=== PATIENT | male | born 1940 | race Caucasian/White ===

== ENCOUNTER → 2016-09-21 | Outpatient (CLI) | payer OTHER | LOC: FIMAGING 14:43 | PROVIDERS: ATTEND Physician Assistant | DX: Z98.1 Arthrodesis status (principal); M25.559 Pain in unspecified hip ==

== ENCOUNTER → 2016-10-19 | Outpatient (CLI) | payer OTHER ==
[~2016-10-19] MED LIST: IOPAMIDOL (ISOVUE-M 200) 20 ML VIAL ONE; LIDOCAINE 1% 300 MG/30 ML SDV ONE
== END ==
LOC: FIMAGING 08:27
PROVIDERS: ATTEND Neurological Surgery
PROC: 3E0R3KZ Introduction of Other Diagnostic Substance into Spinal Canal, Percutaneous Approach (ICD-10-PCS; principal; 2016-10-19)
DX: M48.06 Spinal stenosis, lumbar region (principal); M99.73 Connective tissue and disc stenosis of intervertebral foramina of lumbar region; M51.16 Intervertebral disc disorders with radiculopathy, lumbar region; M89.38 Hypertrophy of bone, other site; Z98.1 Arthrodesis status
CPT/HCPCS: 62284; 72132; 72265; Q9966

== ENCOUNTER → 2016-10-31 | Outpatient (CLI) | payer OTHER | LOC: BHLMT 10:00 | PROVIDERS: ATTEND Internal Medicine Cardiovascular Disease | DX: I48.0 Paroxysmal atrial fibrillation (principal); I25.10 Atherosclerotic heart disease of native coronary artery without angina pectoris; I73.9 Peripheral vascular disease, unspecified; I49.5 Sick sinus syndrome; Z95.0 Presence of cardiac pacemaker; Z95.5 Presence of coronary angioplasty implant and graft | CPT/HCPCS: 93005-PO ==

== ENCOUNTER 2016-12-13 06:08 | Inpatient (IN) | payer OTHER ==
[~2016-12-13 06:08] MED LIST changes: -IOPAMIDOL (ISOVUE-M 200) 20 ML VIAL ONE; -LIDOCAINE 1% 300 MG/30 ML SDV ONE; +ceFAZolin 2 GM/DEXTROSE 100 ML IV ONE; +morphINE SR 15 MG TAB PO ONE
[2016-12-13] MEDS ORDERED: NITROGLYCERIN 0.4 MG BTL SL PRN (06:11)
[2016-12-13] MEDS ORDERED: Adalimumab [Humira Pen] 40 MG SQ SCH (06:15)
[2016-12-13] MEDS ORDERED: THROMBIN (BOVINE) 5,000 UNIT VIAL TP ONE (06:16)
[2016-12-13] MEDS ORDERED: BUPIVACAINE/EPI 0.25% 30 ML SDV ONE ×2 (06:17→08:26)
[2016-12-13] MEDS ORDERED: BACITRACIN 50,000 UNITS/10 ML SYR IRR ONE (06:17)
[2016-12-13] MEDS ORDERED: LIDOCAINE 1% 2 ML INJ ID PRN (06:19)
[2016-12-13] MEDS ORDERED: LR 1,000 ML IV ONE (06:19)
[2016-12-13] MEDS ORDERED: LIDOCAINE 1% 2 ML INJ ONE (06:24)
--- NOTE | 2016-12-13 06:42 | PDHPUP ---
History & Physical Update H&P update statement: This history and physical update is based on an assessment of the patient which was completed after admission or registration (within 24 hours), but prior to the surgery/procedure. H&P update: H&P reviewed & patient examined, no change in patient's condition since H&P completed
--- NOTE | 2016-12-13 06:44 | PDGENHP ---
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 He was doing well post op and nearly pain free for months until approximately one month ago when he began to experience painful symptoms. He describes his symptoms as bilateral hip pain and pain in his right SI region. He has bilateral hamstring pain at times with numbness on top of his left foot. Following his surgery in April, Sammy had a tough time after leaving the hospital and his had a very hard time taking care of him and they wished to go to rehab when they at first did not want this option. We discussed that once they leave the hospital this is very difficult to get covered and so they had their son stay with them for a couple of days, made some med changes, and now he is doing much better. He is taking medications for his RA including Methotrexate and Tylenol Arthritis. Sammy presents today with his for a pre op appointment. He is scheduled for a L3-4 TLIF L3-L5 fusion with Dr Miranda on 12/13/16 at [facility]. He has obtained cardiac clearance from Dr Snowden and will be arranging to get off of his coumadin and start lovenox with his PCP Dr Angel. 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 ALLERGIES [ 1 ] Date Added: 09/29/2016 10:41:01 PM Allergy: NO KNOWN ALLERGIES VITALS [ 1 ] Date: 11/22/2016 9:04:32 AM Height : 67.00 inch. 170.18 cm Weight : 200.00 lbs. 90.72 kg B M I: 31.32 Temperature : 97.60 F. 36.44 C Blood Pressure : 80 / 47 Pulse: 62 beats/minute PE Neurological Orientation Oriented to: Person Place Situation Time Lower Extremity Iliosoas (L1-4) Bilaterally 5/5 Gluteus beatrice (L5-S1) Bilaterally 5/5 Quadriceps (L2-4) Bilaterally 5/5 Hamstrings (L4-5, S1) Bilaterally 5/5 Peronel (L4-5, S1) Bilaterally 5/5 Tibialis anterior (L4-5, S1) Bilaterally 5/5 Gasterocnemius-soleus (L5,S1-2) Bilaterally 5/5 Toes-extensors (L4-5,S1) Bilaterally 5/5 Toes-flexors (L5-S1-2) Bilaterally 5/5 Extensor Hallucis Longus Bilaterally 5/5 Gait Assissted Cane Respiratory Normal work of breathing ADDITIONAL ENCOUNTER INFORMATION This visit was face to face and 15-24 min long and over 50% of the time was spent on counseling and coordination of care. I agree with current diagnostics and treatment plan ADDED BY Ruben Moran ON 11/24/2016 9:57:51 AM CPT/ICD 53202 - OFFICE OUTPATIENT VISIT 15 MINUTES [Qty] = 1 Click here for External Information related to this code Click here for Additional Information related to this code M48.06-Spinal stenosis, lumbar region Click here for External Information related to this code Click here for Additional Information related to this code M51.36-Other intervertebral disc degeneration, lumbar region Click here for External Information related to this code Click here for Additional Information related to this code M54.16-Radiculopathy, lumbar region Click here for External Information related to this code Click here for Additional Information related to this code M54.5-Low back pain Click here for External Information related to this code Click here for Additional Information related to this code Z98.1-Arthrodesis status ASMT/PLAN/REFERRALS Sammy is status post L4-[address] Miranda on 05/09/16. He was doing well and pain free until 3 months ago. He has bilateral hip pain as well as pain in his bilateral hamstrings at time. He has numbness on top of his right foot that started shortly after his surgery. CT myleogram performed on October 19, 2016 at [facility] demonstrates severe spinal stenosis at L3-4 secondary to moderate disk bulge and moderate ligamentum flavm hypertrophy. He also has a mild disk bulge at L2-3 but it is likely that the ASD at L3-4 is the cause of his pain. He has tried PT which was not beneficial and does not wish to pursue any further conservative therapies due to the severity of his pain and severity of the stenosis. He presents today for a pre-op appointment. He is scheduled for a L3-4 TLIF with fusion L3-[address] Miranda on 12/14/16. He has cardiac clearance from Dr Snowden and will stop his Coumadin and bridge with Lovenox with his PCP Dr [place] recommendations. Patient and his have concerns about being discharged home too soon following surgery, we will ensure case management is consulted for possible rehab stay. Risks, benefits and all questions answered. History Information - Allergies/Home Medication List Allergies/Adverse Reactions: tamsulosin HCl [From Flomax] Allergy (Verified 10/17/16 08:52) SEVERE HEADACHE Home Medications: Cinacalcet HCl [Sensipar (*)] 30 mg PO DAILY 02/15/16 [Last Taken 02/15/16] Ezetimibe [Zetia 10 MG (*)] 10 mg PO DAILY 02/15/16 [Last Taken 02/14/16] Metoprolol Tartrate [Lopressor 50 mg (*)] 50 mg PO DAILY 02/15/16 [Last Taken ] Nitroglycerin [Nitrostat 0.4 mg (*)] 0.4 mg SL Q5M PRN 02/15/16 [Last Taken Unknown] Omeprazole [Prilosec 20 mg] 20 mg PO DAILY 02/15/16 [Last Taken 02/15/16] Saxagliptin HCl [ONGLYZA] 2.5 mg PO DAILY 02/15/16 [Last Taken 02/14/16] Acetaminophen [Tylenol ES 500 mg (*)] 500 mg PO DAILY 11/22/16 [Last Taken Unknown] Adalimumab [Humira] 40 mg SQ Q14D 11/22/16 [Last Taken Unknown] Alfuzosin HCl [Alfuzosin HCl ER] 10 mg PO HS 11/22/16 [Last Taken Unknown] Aspirin [Aspirin 325 mg (*)] 325 mg PO DAILY 11/22/16 [Last Taken Unknown] Herbals/Supplements -Info Only 1 ea PO DAILY 11/22/16 [Last Taken Unknown] Methotrexate Sodium [Rheumatrex] 10 mg PO MIRAMONTES 11/22/16 [Last Taken Unknown] Multivitamins [Multivitamin (*)] 1 each PO DAILY 11/22/16 [Last Taken Unknown] [place]-3 Fatty Acids [Fish Oil 1000 mg (*)] 3,000 mg PO DAILY 11/22/16 [Last Taken Unknown] Warfarin Sodium [Coumadin 2.5MG (*)] 2.5 mg PO TUTHSA 11/22/16 [Last Taken Unknown] Warfarin Sodium [Coumadin 5MG (*)] 5 mg PO SUMOWEFR 11/22/16 [Last Taken Unknown ] Prednisone 11/28/16 [Last Taken Unknown] oxyCODONE IR 11/28/16 [Last Taken Unknown] I have personally reviewed and updated: family history, medical history, social history, surgical history - Social History Smoking Status: Former smoker
[2016-12-13] MEDS ORDERED: ceFAZolin 2 GM/DEXTROSE 100 ML IV ONE (07:00)
[2016-12-13] MEDS ORDERED: CEFAZOLIN 2 GM/DEXTROSE/100 ML BAG IV ONE (07:02)
--- NOTE | 2016-12-13 07:19 | PDANEPAE ---
ANE History of Present Illness Patient presents for TLIF ANE Past Medical History - Cardiovascular History Hx Hypertension: Yes Hx Arrhythmias: Yes Hx Chest Pain: No Hx Coronary Artery / Peripheral Vascular Disease: Yes Hx CHF / Valvular Disease: No Hx Palpitations: No Cardiovascular History Comment: [place] 1989. Sick sinus- pacer replaced in Jan 2016.Feels well. - Pulmonary History Hx COPD: No Hx Asthma/Reactive Airway Disease: No Hx Recent Upper Respiratory Infection: No Hx Oxygen in Use at Home: No Hx Sleep Apnea: No Sleep Apnea Screening Result - Last Documented: Positive Pulmonary History Comment: denies SOB w/daily activities - Neurologic History Hx Cerebrovascular Accident: No Hx Seizures: No Hx Dementia: No - Endocrine History Hx Diabetes: No Endocrine History Comment: Rx Onglyza - pre diabetic. Sensipar for Hyperparathyroidism. - Renal History Hx Renal Disorders: Yes Renal History Comment: on Uroxatral to help empty bladder. BPH? - Liver History Hx Hepatic Disorders: No - Neurological & Psychiatric Hx Hx Neurological and Psychiatric Disorders: Yes Neurological / Psychiatric History Comment: back pain x 2 mos. pain radiates down R leg to foot. N/T. - Cancer History Hx Cancer: No - Congenital Disorder History Hx Congenital Disorders: No - GI History Hx Gastrointestinal Disorders: Yes Gastrointestinal History Comment: GERD-on Rx. - Other Health History Other Health History: blood clot several years ago-calf area of legs x2- on Coumadin. bruises easily. RA -Humira Q 2 weeks-well controlled.Hx of gout. - Chronic Pain History Chronic Pain: Yes (back pain) - Surgical History Prior Surgeries: L4/5 laminectomy -12, cyst excision R arm 5-16. 5 STENTS PLACED : 1999 - DR. BANUELOS FROM [facility] ANE Review of Systems - Exercise capacity METS (RN): 3 METS - Pacemaker Pacemaker Type: Permanent Pacer/Defib Pacemaker Manager Of Finance: Medtronic Pacemaker Model: ADSR01; ADAPTIVE SR PACEMAKER Pacemaker Set Rate: 60 Date Pacemaker Last Checked: 10/2011 NEXT APPT 05/06/12 ANE Patient History - Allergies Allergies/Adverse Reactions: tamsulosin HCl [From Flomax] Allergy (Verified 10/17/16 08:52) SEVERE HEADACHE - Home Medications Home medications: home medication list seen and reviewed Home Medications: Cinacalcet HCl [Sensipar (*)] 30 mg PO DAILY 02/15/16 [Last Taken 12/13/16 05:30 ] Ezetimibe [Zetia 10 MG (*)] 10 mg PO DAILY 02/15/16 [Last Taken 12/13/16 05:30] Metoprolol Tartrate [Lopressor 50 mg (*)] 50 mg PO DAILY 02/15/16 [Last Taken 05:30] Nitroglycerin [Nitrostat 0.4 mg (*)] 0.4 mg SL Q5M PRN 02/15/16 [Last Taken Unknown] Omeprazole [Prilosec 20 mg] 20 mg PO DAILY 02/15/16 [Last Taken 12/12/16] Saxagliptin HCl [ONGLYZA] 2.5 mg PO DAILY 02/15/16 [Last Taken 12/12/16 07:30] Acetaminophen [Tylenol ES 500 mg (*)] 500 mg PO DAILY 11/22/16 [Last Taken 12/12 21:00] Adalimumab [Humira] 40 mg SQ Q14D 11/22/16 [Last Taken Unknown] Alfuzosin HCl [Alfuzosin HCl ER] 10 mg PO HS 11/22/16 [Last Taken 12/12/16 21:30 ] Aspirin [Aspirin 325 mg (*)] 325 mg PO DAILY 11/22/16 [Last Taken 12/06/16] Herbals/Supplements -Info Only 1 ea PO DAILY 11/22/16 [Last Taken 12/06/16] Methotrexate Sodium [Rheumatrex] 10 mg PO MIRAMONTES 11/22/16 [Last Taken 12/10/16] Multivitamins [Multivitamin (*)] 1 each PO DAILY 11/22/16 [Last Taken 12/06/16] [place]-3 Fatty Acids [Fish Oil 1000 mg (*)] 3,000 mg PO DAILY 11/22/16 [Last Taken 11/22/16] Warfarin Sodium [Coumadin 2.5MG (*)] 2.5 mg PO TUTHSA 11/22/16 [Last Taken 12/06] Warfarin Sodium [Coumadin 5MG (*)] 5 mg PO SUMOWEFR 11/22/16 [Last Taken ] Prednisone 11/28/16 [Last Taken 11/15/16] oxyCODONE IR 11/28/16 [Last Taken 12/12/16 08:00 1/2 tab] - NPO status NPO Status: no food or drink >8 hours NPO Since - Liquids (Date): 12/12/16 NPO Since - Liquids (Time): 22:00 NPO Since - Solids (Date): 12/12/16 NPO Since - Solids (Time): 18:00 - Anes Hx Anes Hx: no prior problems - Smoking Hx Smoking Status: Former smoker - Family Anes Hx Family Hx Anesthesia Complications: N/A ANE Labs/Vital Signs - Vital Signs Blood Pressure: 149/87 Heart Rate: 84 Respiratory Rate: 20 O2 Sat (%): 97 Height: 170.18 cm Weight: 90.718 kg ANE Physical Exam - Airway Neck exam: FROM Mallampati Score: Class 2 Mouth exam: normal dental/mouth exam - Pulmonary Pulmonary: no respiratory distress - Cardiovascular Cardiovascular: regular rate and rhythym - ASA Status ASA Status: III ANE Anesthesia Plan Anesthesia Plan: general endotracheal anesthesia Lines/Monitors: arterial line (rba discussed)
[2016-12-13] MEDS ORDERED: PROPOFOL/EMULSION 500 MG/50 ML BOTTLE IV ONE ×2 (07:22→09:50)
[2016-12-13] MEDS ORDERED: fentaNYL 100 MCG/2 ML INJ ONE (07:22)
[2016-12-13] MEDS ORDERED: REMIFENTANIL HCL 1 MG VIAL ONE ×3 (07:22)
[2016-12-13] MEDS ORDERED: DEXAMETHASONE 4 MG/ML VIAL ONE (07:23)
[2016-12-13] MEDS ORDERED: ONDANSETRON 4 MG/2 ML VIAL ONE (07:23)
[2016-12-13] MEDS ORDERED: ROCURONIUM 50 MG/5 ML VIAL ONE (07:23)
[2016-12-13] MEDS ORDERED: LIDOCAINE 2% 5 ML SDV ONE (07:23)
[2016-12-13] MEDS ORDERED: PROPOFOL 200 MG/20 ML VIAL ONE (07:23)
[2016-12-13] MEDS ORDERED: PHENYLEPHRINE HCL 100 MCG/ML SYR ONE (07:50)
[2016-12-13] MEDS ORDERED: epHEDrine SULFATE 10 MG/ML SYR ONE (07:53)
[2016-12-13] MEDS ORDERED: PHENYLEPHRINE 10 MG/ML SDV ONE (08:52)
[2016-12-13] MEDS ORDERED: SAXAGLIPTIN HCL 2.5 MG PO SCH (09:00)
[2016-12-13] MEDS ORDERED: NON-FORMULARY NEW DRUG (Omeprazole [Prilosec 20 Mg] 20 MG) PO SCH (09:00)
[2016-12-13] MEDS ORDERED: ACETAMINOPHEN 500 MG TAB PO SCH (09:00)
[2016-12-13] MEDS ORDERED: HYDROmorphONE/DILAUDID 2 MG/ML INJ ONE (10:17)
[2016-12-13] MEDS ORDERED: SUGAMMADEX SODIUM 200 MG/2 ML VIAL IVP ONE (10:19)
[2016-12-13] MEDS ORDERED: NALOXONE HCL 0.4 MG/ML INJ IVP PRN ×2 (11:17→12:30)
[2016-12-13] MEDS ORDERED: HYDROmorphONE/DILAUDID 1 MG/ML SYR IVP PRN ×2 (11:17→12:58)
[2016-12-13] MEDS ORDERED: fentaNYL 100 MCG/2 ML INJ IVP PRN (11:17)
[2016-12-13] MEDS ORDERED: ONDANSETRON 4 MG/2 ML VIAL IVP PRN ×2 (11:17→12:30)
[2016-12-13] MEDS ORDERED: LR 500 ML IV PRN (11:17)
[2016-12-13] MEDS ORDERED: ceFAZolin 1 GM VIAL ONE (11:21)
--- NOTE | 2016-12-13 12:29 | SOAPPROG ---
SOAP Progress Note Assessment/Plan: Post Op Visit: S: Awake and alert. NAD. Pt with expected lower back pain O: AFVSS/PERRLA/EOMI no droop CN 2-12 grossly intact +lt touch 5/5 BUE/BLE = CDI ROBINA in place A/P: 76 yo male that is s/p removal of hardware L4/5 with new TLIF at L3/4 and PSF L3-L5 -orders in place -call with any questions or concerns -pt seen by Dr Miranda -spoke with Doug Pozo from for consult regarding medical management -H/P on chart 12/13/16 12:26 Objective: Vital Signs Temp Pulse Resp BP Pulse Ox 36.3 C 84 13 147/82 H 100 12/13/16 12:13 12/13/16 07:19 12/13/16 12:11 12/13/16 12:11 12/13/16 12:11 ICD10 Worksheet Patient Problems: Problems Problem Status Onset Lumbar canal stenosis Acute Lumbar degenerative disc disease Acute Lumbar disc herniation with radiculopathy Acute Lumbar pars defect Acute
[2016-12-13] MEDS ORDERED: diphenhydrAMINE 25 MG CAP PO PRN (12:30)
[2016-12-13] MEDS ORDERED: MAGNESIUM HYDROXIDE 30 ML UDCUP PO PRN (12:30)
[2016-12-13] MEDS ORDERED: LACTULOSE 20 GM/30 ML UDCUP PO PRN (12:30)
[2016-12-13] MEDS ORDERED: ONDANSETRON DISINTEGRATING 4 MG TAB PO PRN (12:30)
[2016-12-13] MEDS ORDERED: METHOCARBAMOL 750 MG TAB PO PRN (12:30)
[2016-12-13] MEDS ORDERED: HYDROmorphONE/DILAUDID 6 MG/30 ML PCA IV PRN (12:30)
[2016-12-13] MEDS ORDERED: BISACODYL 10 MG SUPP PR PRN (12:30)
[2016-12-13] MEDS ORDERED: POLYETHYLENE GLYCOL 3350 17 GM PKT PO PRN (12:30)
[2016-12-13] MEDS ORDERED: ACETAMINOPHEN 325 MG TAB PO PRN (12:43)
--- NOTE | 2016-12-13 12:47 | POSTANESTH ---
Post Anesthetic Evaluation Cardiovascular Status: Normal, Stable Respiratory Status: Normal, Stable Level of Consciousness/Mental Status: Can Participate in Eval Pain Control: Adequate, Prn Tx Ordered Nausea/Vomiting Control: Adequate, Prn Tx Ordered Complications Possibly Related to Anesthesia: None Noted
[2016-12-13] MEDS: Saxagliptin Hcl [Onglyza] 2.5 MG PO SCH (13:44)
[2016-12-13] MEDS: PANTOPRAZOLE SODIUM 40 MG TAB PO SCH (13:44)
[2016-12-13] MEDS: METOPROLOL TARTRATE 50 MG TAB PO SCH (13:44)
[2016-12-13] MEDS: EZETIMIBE 10 MG TAB PO SCH (14:19)
[2016-12-13] MEDS: CINACALCET HCL 30 MG TAB PO SCH (14:19)
[2016-12-13] MEDS ORDERED: D50W 25 GM/50 ML SYR IVP PRN (15:10)
[2016-12-13 16:15] LABS: ANION GAP 9 mEq/L (8-16); CALCIUM 8.9 mg/dL (8.5-10.4); CARBON DIOXIDE 23 mEq/l (22-31); CHLORIDE 109 mEq/L (97-110); CREATININE 1.3 mg/dL (0.7-1.3); GLOMERULAR FILTRATION RATE 54; GLUCOSE 129 mg/dL (70-100); POTASSIUM 5.5 mEq/L (3.5-5.2); SODIUM 141 mEq/L (134-144)
[2016-12-13] MEDS: oxyCODONE IR 5 MG TAB PO PRN (17:38)
[2016-12-13] MEDS: INSULIN LISPRO 100 UNIT/ML SC SCH (17:42)
[2016-12-13] MEDS ORDERED: predniSONE 5 MG TAB PO PRN (18:11)
[2016-12-13] MEDS ORDERED: HYDROCORTISONE 100 MG/2 ML VIAL IVP ONE (18:13)
[2016-12-13] MEDS: NS 1,000 ML IV SCH ×2 (19:17→19:35)
[2016-12-13] MEDS: Alfuzosin Hcl [Alfuzosin Hcl Er] 10 MG PO SCH (19:28)
[2016-12-13] MEDS: ceFAZolin 2 GM/DEXTROSE 100 ML IV SCH (19:35)
[2016-12-13] MEDS: FAMOTIDINE 20 MG TAB PO SCH (19:36)
[2016-12-13] MEDS: SENNOSIDES/DOCUSATE SODIUM TAB PO SCH (19:36)
[2016-12-13] MEDS ORDERED: morphINE SR 15 MG TAB PO SCH (21:00)
[2016-12-13] MEDS ORDERED: NON-FORMULARY NEW DRUG (Alfuzosin Hcl [Alfuzosin Hcl Er] 10 MG) PO SCH (21:00)
--- NOTE | 2016-12-13 22:58 | GOP ---
[f rep st] OPERATIVE REPORT DATE OF OPERATION: 12/13/2016 SURGEON: Laura Miranda MD NEUROSURGEON: Laura Miranda MD VENDING MACHINE ATTENDANT: Lee Carrasco PA-C PREOPERATIVE DIAGNOSIS: Adjacent segment disease, severe stenosis, bilaterally L3-4; bilateral lumb osacral radiculopathy; prior lumbar fusion at L4-5. POSTOPERATIVE DIAGNOSIS: Adjacent segment disease, severe stenosis, bilaterally L3-4; bilateral lum bosacral radiculopathy; prior lumbar fusion at L4-5. PROCEDURE PERFORMED: Removal of posterior nonsegmental hardware across a single interspace at L4-5, posterior, lateral, and intervertebral arthrodesis at L3-4 with bilateral decompressions and an int erbody device was placed there (22405, 12061), posterior segmental instrumentation L3, L4, L5 (49982 ), same incision bone graft harvest, microscope, stereotaxy. FINDINGS: ESTIMATED BLOOD LOSS: 150 cc. INDICATIONS: The patient is an elderly gentleman, who had a successful lumbar fusion at L4-5 back i april, who began to develop severe bilateral radiating leg pain and repeat CT myelogram of the lumbar spine demonstrated terrible stenosis above the prior fusion at L3-4. I suggested adjacent se gment instrumentation and explained to him and his that he may require additional segments of s urgery at some point in the future. I did not recommend laminectomy alone above my prior fusion. T here did not appear to be any problem with the prior fusion. It is unclear whether or not he had so lid intervertebral bone growth, however, there was, particularly on the left-hand side, solid bridgi ng bone posterolaterally. The risk of screw and hardware malposition, malfunction, nerve injury, sp inal fluid leak, and continued symptoms was discussed. He accepted those risks and he wanted to pro ceed. DESCRIPTION OF PROCEDURE: The patient was taken to the operating room, placed in supine position. General anesthesia was begun. He was flipped prone onto the Pradip table. Care was taken to pad a ll points of contact. His back was sterilely prepped and draped in the usual fashion. A localizing x-ray was taken. Midline incision was made. The prior incision was opened. We had a total incisi on length of about 8 cm. The subcutaneous tissue was dissected using a plasma blade down through th e fascia, and a subperiosteal dissection was made down the L2 lamina. The L3 lamina was completely exposed. The L4-5 posterolateral hardware was exposed. The rostral L4 lamina was exposed. We removed the prior hardware. It was Medtronic Solera. There was no defect in the hardware. The screws were all well seated within bone. There was no loosening of the hardware. Posterolaterally, we identified large solid posterolateral bone mass at L4-5, and we deemed this fused. There was no motion between L4 and L5. The Exec reference frame was placed. We placed pedicle screws bilate rally at L3, L4, and L5. We used a 5.5 mm system. We then took a 70 mm Solera michael, placed it down over the tulips, distracted significantly at L3-4, and transitionally tightened at L3. Later in the case, we would collapse L3 down on our lordotic device to increase the lordosis. We dissected all the soft tissue off the L3-4 lamina, harvested the inferior L3 spinous process, all of the L4 spinou s process. We then drilled bilateral laminectomy and bilateral decompressions at L3-4 and harvested this for au tologous grafting purposes. Under the scope, we decompressed the thecal sac bilaterally. We perfor med a complete left L3-4 facetectomy and a partial right L3-4 facetectomy, and decompress both sides of the spinal canal. We then opened the neural foramen on the left-hand side to access the interve rtebral space. We swept the thecal sac medially, incised the L3-4 disk, and removed the disk comple tely and its cartilaginous endplates. We roughened the subchondral bone to create arthrodesis and s ized for an 8 x 28 mm device. We placed bone autograft into the interspace and BMP, elevated the derrick ne intervertebral device, decorticated all the posterior lateral bone, checked fluoroscopic images t hat all the devices were in excellent position. We compressed at L3-4, final tightened the cap scre ws according to company specification. Placed a subfascial drain, and closed the incision in multip le layers using Vicryl sutures. A running PDS was placed in the skin itself. COMPLICATIONS: None. /[id number]/MODL
--- NOTE | 2016-12-13 23:08 | GCON ---
[f rep st] CONSULTATION DATE OF CONSULTATION: 12/13/2016 REFERRING PHYSICIAN: Dr. Miranda REASON FOR CONSULTATION: Medical management. HISTORY OF PRESENT ILLNESS: The patient is a 76-year-old male with history of RA, CAD with stents, pacemaker, lower extremity DVTs, who underwent elective L3-4 TLIF, L3-5 fusion today. The patient u nderwent prior L4-L5 fusion in April 2016 with good recovery; however, he has had progressive geovany ateral hip and right SI region pain for the past month. He denies chest pain, shortness of breath. No fevers or chills. No nausea, vomiting, or diarrhea. He is comfortable after surgery today. He has been off his Coumadin and taking Lovenox at home chaya or to the surgery. REVIEW OF SYSTEMS: I completed a 10-point review of systems, negative except as noted in HPI. PAST MEDICAL HISTORY: 1. RA pacemaker in 1990, replaced last year. 2. Coronary artery disease, status post 5 stents. 3. Bilateral lower extremity DVTs. 4. Hyperlipidemia. 5. Hypertension. 6. SC in 1989. 7. Peripheral vascular disease. 8. Sick sinus syndrome. 9. Diabetes, controlled on orals. PAST SURGICAL HISTORY: 1. Prior laminectomy. 2. Right elbow. SOCIAL HISTORY: Lives with his in [place]. No tobacco, alcohol, or illicits. ALLERGIES: Flomax. FAMILY HISTORY: Noncontributory. HOME MEDICATIONS: Oxycodone 2.5 mg twice daily, Humira 40 mg subcu q.2 weeks, prednisone 5 mg p.r.n ., Coumadin 5 mg Ipyjed-Lqsrvc-Ddqielolc-Sunday, 2.5 mg every other day, metoprolol 50 mg daily, Thor lyza 2.5 mg daily, omeprazole 20 mg daily, Zetia 10 mg daily, Sensipar 30 mg daily, Tylenol as neede d, fish oil, multivitamin, aspirin 325 daily, nitroglycerin p.r.n. PHYSICAL EXAMINATION: VITAL SIGNS: Temperature 36.8, blood pressure 140/77, heart rate 60s, respir ations 16, 100% on 1.5 L. GENERAL: The patient is drowsy after surgery but easily arousable to voi ce and appropriately answering questions. HEENT: PERRLA. EOMI. Oropharynx clear. CV: Regular r ate and rhythm. No murmurs, gallops, or rubs. LUNGS: Clear to auscultation anteriorly. ABDOMEN: Soft, nontender, nondistended. Positive bowel sounds. : Freeman in place with clear yellow urine . MUSCULOSKELETAL: Moving all extremities. ROBINA drain in place with serosanguineous fluid. NEURO: 2 through 12 intact. No focal deficits. PSYCH: Alert and oriented x3. Very pleasant. LABORATORY DATA: Creatinine baseline 1.3 to 1.5. ASSESSMENT AND PLAN: 1. Lumbar stenosis: Status post L3-4 transforaminal lumbar interbody fusion with posterior spinal fusion L3-L5 with Dr. Miranda today without complication. Pain management per Neurosurgery. The pat ient states he did well with oxycodone and Tylenol in prior hospitalization. The patient and family would like Case Management involved early in process to ensure warranted needs are arranged prior t o discharge. 2. Coronary artery disease: Continue beta palomo and statin. Hold aspirin, per Neurosurgery's ok ay to restart. 3. Rheumatoid arthritis: Continue methotrexate, takes on Sundays. 4. History of bilateral lower extremity deep venous thromboses: On Coumadin. He was taking Loveno x 6 days prior to procedure. He may resume when okayed by Neurosurgery. 5. Hyperlipidemia: Continue Zetia. 6. Benign hypertension: Continue home medications. 7. History of sick sinus syndrome, status post pacemaker. 8. Controlled diabetes: Continue oral agents. Sliding scale insulin while here. 9. Chronic kidney disease: Baseline creatinine 1.3-1.5. Will get labs now. Renally dose medicati ons. 10. Ecqoc-kf-wjyydly pain: Suspect surgical pain. Would refrain from morphine, given CKD. Will p rovide oxycodone. Thank you for this consultation. We will follow along. Please call with questions. /[id number]/MODL
--- NOTE | 2016-12-13 23:25 | CPEKG ---
Heart Rate: 67 RR Interval: 896 P-R Interval: 204 QRSD Interval: 112 QT Interval: 388 QTC Interval: 410 P [place]: 80 QRS [place]: -36 T Wave [place]: -21 EKG Severity - ABNORMAL ECG - EKG Impression: SINUS RHYTHM EKG Impression: INCOMPLETE RIGHT BUNDLE BRANCH BLOCK EKG Impression: PROBABLE INFERIOR INFARCT, AGE INDETERMINATE Electronically Signed By: Ruben Madera 14-Dec-2016 07:43:14
[2016-12-13 23:53] LABS: ANION GAP 9 mEq/L (8-16); CARBON DIOXIDE 24 mEq/l (22-31); CHLORIDE 110 mEq/L (97-110); CREATININE 1.4 mg/dL (0.7-1.3); GLOMERULAR FILTRATION RATE 49; GLUCOSE 142 mg/dL (70-100); POTASSIUM 4.8 mEq/L (3.5-5.2); SODIUM 143 mEq/L (134-144)
[2016-12-14] MEDS: oxyCODONE IR 5 MG TAB PO PRN ×5 (03:03→23:56)
[2016-12-14] MEDS: ceFAZolin 2 GM/DEXTROSE 100 ML IV SCH (03:04)
[2016-12-14 05:32] LABS: ANION GAP 10 mEq/L (8-16); CALCIUM 8.7 mg/dL (8.5-10.4); CARBON DIOXIDE 23 mEq/l (22-31); CHLORIDE 108 mEq/L (97-110); CREATININE 1.3 mg/dL (0.7-1.3); GLOMERULAR FILTRATION RATE 54; GLUCOSE 125 mg/dL (70-100); POTASSIUM 4.7 mEq/L (3.5-5.2); SODIUM 141 mEq/L (134-144)
--- NOTE | 2016-12-14 07:01 | NEUSURGPN ---
Date of Surgery: 12/13/16 Post Op Day: 1 Assessment/Plan: Assessment: 76 yo male that is s/p removal of hardware L4/5 with new TLIF at L3/ 4 and PSF L3-L5 POD #1 Plan: -pt states that his legs feel better overall but does state he has expected lower back pain -post op xrays pending today -PT/OT ordered -pt has brace from home to wear when out of bed -ELDER COUNSELOR ordered but not needed yet -continue with current pain management -ROBINA still in place-plan for possible dc later today -orders in place -call with any questions or concerns -pt seen by Dr Miranda -IM on board-appreciate their input and management of his medical needs -pt/ understands and agrees -H/P on chart 12/13/16 12:26 Subjective: Awake and alert. NAD. Eating/drinking and voiding. No f/c/n/v/d. No carroll/neck/ chest/abd or gu complaints. Objective: AFVSS/PERRLA/EOMI no droop CN 2-12 grossly intact +lt touch 5/5 BUE/BLE = CDI ROBINA in place Neuro Check Frequency: per routine Urinary Catheter in Place: No Catheter Insertion Date: 12/13/16 - Physician Discussed Patient with .: Ruben Patient Seen by : Ruben Neurosurgery Physical Exam - Vitals, I&O, Labs I and O 12/13/16 12/14/16 12/15/16 05:59 05:59 05:59 Intake Total 2690 Output Total 3720 Balance -1030 Weight 90.718 kg Intake: Oral (ml) 15 IV Intake (ml) 2500 IV Infused (ml) 175 Ns 1,000 ml @ 75 mls/hr 75 IV CONT JUANI Rx#: [id number] ceFAZolin 2 GM/DEXTROSE 100 100 ml @ 200 mls/hr IV Q8H JUANI Rx#:[id number] Output: Urine (ml) 3475 Catheter 3475 Estimated Blood Loss (ml) 100 ROBINA Drain Output (ml) 145 #1 Posterior Back Pradip 145 [place] Other: Number of Voids Catheter 2 Vital Signs Temp Pulse Resp BP Pulse Ox 36.9 C 66 15 130/62 H 100 12/14/16 04:30 12/14/16 04:30 12/14/16 04:30 12/14/16 04:30 12/14/16 04:30 Laboratory Results 12/14/16 04:19 ICD10 Worksheet Patient Problems: Problems Problem Status Onset Lumbar canal stenosis Acute Lumbar degenerative disc disease Acute Lumbar disc herniation with radiculopathy Acute Lumbar pars defect Acute
[2016-12-14] MEDS: INSULIN LISPRO 100 UNIT/ML SC SCH ×3 (07:48→17:53)
[2016-12-14] MEDS: PANTOPRAZOLE SODIUM 40 MG TAB PO SCH (08:43)
[2016-12-14] MEDS: SENNOSIDES/DOCUSATE SODIUM TAB PO SCH ×2 (08:43→20:04)
[2016-12-14] MEDS: METOPROLOL TARTRATE 50 MG TAB PO SCH (08:43)
[2016-12-14] MEDS: FAMOTIDINE 20 MG TAB PO SCH (08:43)
[2016-12-14] MEDS: EZETIMIBE 10 MG TAB PO SCH (08:43)
[2016-12-14] MEDS: CINACALCET HCL 30 MG TAB PO SCH (08:54)
[2016-12-14] MEDS ORDERED: HYDROCORTISONE 100 MG/2 ML VIAL IVP ONE (09:00)
--- NOTE | 2016-12-14 10:24 | HOSPPROG ---
Hospitalist Progress Note Assessment/Plan: Patient is a 76-year-old male with a history of rheumatoid arthritis, coronary artery disease with stents, diabetes, DVTs who underwent a back surgery for progressive bilateral hip and right SI pain for the past month. Today is my 1st encounter with the patient. Chart reviewed. * lumbar stenosis s/p removal of hardware L4/5 with new TLIF at L3/4 and PSF L3- L5 POD #1 doing well today pain well managed * CAD Beta-palomo, statin therapy, and resume aspirin when okay with Neurosurgery * history of bilateral DVTs On Lovenox for DVT prophylaxis dose Will need to resume Coumadin when okay with Neurosurgery he had clots >10 years ago * diabetes Usually on oral agents but will be on sliding scale while here Glucose is overall stable * hyperlipidemia Statin * chronic kidney disease Will discontinue any nephrotoxins medications dc mom, decrease Pepcid dose, hold allopurinol * hypertension * rheumatoid arthritis On prednisone, will need to resume his methotrexate * acute on chronic pain no complaints *DVT prophylaxis: LMWH *Plan: he will likely be here for another day or so/ doing well/ Coumadin when ok with neurosurgery Subjective: Chris said his pain is well manged/ no complaints. Objective: Vital Signs Temp Pulse Resp BP Pulse Ox 36.9 C 77 18 144/65 H 99 12/14/16 07:35 12/14/16 07:35 12/14/16 07:35 12/14/16 07:35 12/14/16 07:35 Laboratory Results 12/14/16 04:19 12/13/16 12/14/16 12/15/16 05:59 05:59 05:59 Intake Total 2690 Output Total 3720 Balance -1030 - Physical Exam Constitutional: no apparent distress, appears nourished, not in pain Eyes: PERRL Ears, Nose, Mouth, Throat: hearing normal Cardiovascular: regular rate and rhythym Respiratory: no respiratory distress Gastrointestinal: normoactive bowel sounds Skin: warm, normal color Musculoskeletal: generalized weakness Neurologic: AAOx3 Psychiatric: interacting appropriately ICD10 Worksheet Patient Problems: Problems Problem Status Onset Lumbar canal stenosis Acute Lumbar degenerative disc disease Acute Lumbar disc herniation with radiculopathy Acute Lumbar pars defect Acute
[2016-12-14] MEDS: Saxagliptin Hcl [Onglyza] 2.5 MG PO SCH (13:45)
[2016-12-14] MEDS ORDERED: BACITRACIN OINTMENT 1 PACKET TP ONE (17:45)
[2016-12-14] MEDS: Alfuzosin Hcl [Alfuzosin Hcl Er] 10 MG PO SCH (20:04)
[2016-12-15 04:53] LABS: % IMMATURE GRANULYOCYTES 1.8 % (0.0-1.1); ABSOLUTE IMMATURE GRANULOCYTES 0.23 10^3/uL (0.00-0.10); ADD DIFF? NO; ADD MORPH? NO; ADD SCAN? NO; ATYPICAL LYMPHOCYTE FLAG 0 (0-99); FRAGMENT RBC FLAG 0 (0-99); HEMATOCRIT 37.8 % (40.0-51.0); HEMOGLOBIN 12.4 g/dL (13.7-17.5); LEFT SHIFT FLG 10 (0-99); LIPEMIA HEMOLYSIS FLAG 80 (0-99); MEAN CELL HEMOGLOBIN 32.5 pg (27.9-34.1); MEAN CELL HEMOGLOBIN CONCENTR. 32.8 g/dL (32.4-36.7); PLATELET CLUMPS FLAG 0 (0-99); PLATELET COUNT 167 10^3/uL (150-400); RED BLOOD CELL COUNT 3.82 10^6/uL (4.40-6.38); RED CELL DISTRIBUTION WIDTH 17.1 % (11.5-15.2)
[2016-12-15 05:07] LABS: ALANINE AMINOTRANSFERASE 64 IU/L (21-72); ALBUMIN 3.1 g/dL (3.5-5.0); ALKALINE PHOSPHATASE 32 IU/L (38-126); ANION GAP 10 mEq/L (8-16); ASPARTATE AMINOTRANSFERASE 39 IU/L (17-59); BILIRUBIN,TOTAL 0.7 mg/dL (0.1-1.4); CALCIUM 8.9 mg/dL (8.5-10.4); CARBON DIOXIDE 23 mEq/l (22-31); CHLORIDE 107 mEq/L (97-110); CREATININE 1.3 mg/dL (0.7-1.3); GLOMERULAR FILTRATION RATE 54; GLUCOSE 89 mg/dL (70-100); POTASSIUM 4.2 mEq/L (3.5-5.2); SODIUM 140 mEq/L (134-144)
[2016-12-15] MEDS: oxyCODONE IR 5 MG TAB PO PRN ×2 (08:00→16:12)
[2016-12-15] MEDS: METOPROLOL TARTRATE 50 MG TAB PO SCH (08:01)
[2016-12-15] MEDS: PANTOPRAZOLE SODIUM 40 MG TAB PO SCH (08:01)
[2016-12-15] MEDS: EZETIMIBE 10 MG TAB PO SCH (08:01)
[2016-12-15] MEDS: CINACALCET HCL 30 MG TAB PO SCH (08:01)
[2016-12-15] MEDS: SENNOSIDES/DOCUSATE SODIUM TAB PO SCH (08:04)
--- NOTE | 2016-12-15 08:05 | NEUSURGPN ---
Assessment/Plan: Assessment: 76 yo male that is s/p removal of hardware L4/5 with new TLIF at L3/ 4 and PSF L3-L5 POD #2 Plan: -pt states that his legs feel better overall but does state he has expected lower back pain -post op xrays pending today -PT/OT ordered -LSO when OOB -continue with current pain management -orders in plac-call with any questions or concerns -IM on board-appreciate their input and management of his medical needs -pt/ understands and agrees Subjective: low back pain, denies any leg pain, numbness, tingling or weakness Objective: NAD A&Ox3 MAEx4 5/5 and equal in BUE and BLE. Incision c/d/i Catheter Insertion Date: 12/13/16 - Physician Discussed Patient with : [facility] Neuro[facility] Physical Exam - Vitals, I&O, Labs I and O 12/14/16 12/15/16 12/16/16 05:59 05:59 05:59 Intake Total 2690 Output Total 3720 530 Balance -1030 -530 Weight 90.718 kg Intake: Oral (ml) 15 IV Intake (ml) 2500 IV Infused (ml) 175 Ns 1,000 ml @ 75 mls/hr 75 IV CONT JUANI Rx#: [id number] ceFAZolin 2 GM/DEXTROSE 100 100 ml @ 200 mls/hr IV Q8H JUANI Rx#:[id number] Output: Urine (ml) 3475 400 Catheter 3475 Urinal 400 Estimated Blood Loss (ml) 100 ROBINA Drain Output (ml) 145 130 #1 Posterior Back Pradip 145 130 Pritchard Other: Intake Quantity Yes Sufficient Number of Voids Catheter 2 Vital Signs Temp Pulse Resp BP Pulse Ox 37.1 C 82 16 129/79 H 93 12/15/16 07:44 12/15/16 07:44 12/15/16 07:44 12/15/16 07:44 12/15/16 07:44 Laboratory Results 12/15/16 04:20 12/15/16 04:20 ICD10 Worksheet Patient Problems: Problems Problem Status Onset Lumbar canal stenosis Acute Lumbar degenerative disc disease Acute Lumbar disc herniation with radiculopathy Acute Lumbar pars defect Acute
[2016-12-15] MEDS: Saxagliptin Hcl [Onglyza] 2.5 MG PO SCH (08:06)
[2016-12-15] MEDS ORDERED: ALLOPURINOL 300 MG TAB PO SCH ×3 (08:18→16:42)
[2016-12-15] MEDS: INSULIN LISPRO 100 UNIT/ML SC SCH ×2 (08:20→12:38)
[2016-12-15] MEDS ORDERED: FAMOTIDINE 20 MG TAB PO SCH (09:00)
[2016-12-15 12:00] VITALS: PULSE 73
[2016-12-15 15:43] VITALS: BP 128/62; RESP 16; TEMP 98.9; O2SAT 93
[2016-12-15] MEDS ORDERED: ENOXAPARIN 40 MG/0.4 ML SYR SC SCH (15:45)
--- NOTE | 2016-12-15 16:51 | PDIAF ---
- Diagnosis Code Status: Full Code - Medication Management Discharge Medications: Medications to Continue on Transfer Cinacalcet HCl [Sensipar (*)] 30 mg PO DAILY 02/15/16 [Last Taken 12/13/16 05:30 ] Ezetimibe [Zetia 10 MG (*)] 10 mg PO DAILY 02/15/16 [Last Taken 12/13/16 05:30] Metoprolol Tartrate [Lopressor 50 mg (*)] 50 mg PO DAILY 02/15/16 [Last Taken 05:30] Nitroglycerin [Nitrostat 0.4 mg (*)] 0.4 mg SL Q5M PRN 02/15/16 [Last Taken Unknown] Omeprazole [Prilosec 20 mg] 20 mg PO DAILY 02/15/16 [Last Taken 12/12/16] Saxagliptin HCl [ONGLYZA] 2.5 mg PO DAILY 02/15/16 [Last Taken 12/12/16 07:30] Acetaminophen [Tylenol 325mg (*)] 325 - 650 mg PO Q4HRS PRN #0 tab 05/20/16 [ Last Taken Unknown] Acetaminophen [Tylenol ES 500 mg (*)] 500 mg PO DAILY 11/22/16 [Last Taken 12/12 21:00] Adalimumab [Humira Pen] 40 mg SQ Q14D 11/22/16 [Last Taken 3 Weeks Ago] Alfuzosin HCl [Alfuzosin HCl ER] 10 mg PO HS 11/22/16 [Last Taken 12/12/16 21:30 ] Aspirin [Aspirin 325 mg (*)] 325 mg PO DAILY 11/22/16 [Last Taken 12/06/16] Herbals/Supplements -Info Only 1 ea PO DAILY 11/22/16 [Last Taken 12/06/16] Methotrexate Sodium [Rheumatrex] 10 mg PO MIRAMONTES 11/22/16 [Last Taken 12/10/16] Multivitamins [Multivitamin (*)] 1 each PO DAILY 11/22/16 [Last Taken 12/06/16] Lehigh-3 Fatty Acids [Fish Oil 1000 mg (*)] 3,000 mg PO DAILY 11/22/16 [Last Taken 11/22/16] Warfarin Sodium [Coumadin 2.5MG (*)] 2.5 mg PO TUTHSA 11/22/16 [Last Taken 12/06] Warfarin Sodium [Coumadin 5MG (*)] 5 mg PO SUMOWEFR 11/22/16 [Last Taken ] predniSONE 5 mg PO DAILY PRN 11/28/16 [Last Taken 11/15/16] Allopurinol [Allopurinol 300 MG (RX)] 300 mg PO MOWEFR 12/14/16 [Last Taken Unknown] Enoxaparin [Lovenox 100 MG (*)] 100 mg SQ 1000,2200 #10 syr 12/15/16 [Last Taken Unknown] Enoxaparin [Lovenox 40 MG (*)] 40 mg SC DAILY #1 syr 12/15/16 [Last Taken Unknown] Methocarbamol [Robaxin 750 mg (*)] 750 mg PO QID PRN #60 tab 12/15/16 [Last Taken Unknown] oxyCODONE IR [Oxycodone Ir (*)] 5 - 10 mg PO Q6 PRN #30 tab 12/15/16 [Last Taken Unknown] Discharge Medications: Refer to the Discharge Home Medication list for PRN reason. - Orders Services needed: Home Care, Physical Therapy, Occupational Therapy Home Care Face to Face: I certify that this patient was under my care and that I had the required [id number] encounter meeting the encounter requirements on the discharge day. My findings support the fact that the patient is homebound as defined in CMS Chapter 7 Medicare Benefits Manual 30.1.1, The condition of the patient is such that there exists a normal inability to leave home and consequently, leaving home would require a considerable and taxing effort. Diet Recommendation: no restrictions on diet Diet Texture: Regular Texture Diet - Follow Up Care Current Providers and Referrals: ALEXANDRO KAPOOR [Primary Care Provider] - 3-5 days Saundra Miranda MD [Medical Doctor] - follow up in 2 weeks
--- NOTE | 2016-12-15 17:09 | GDS ---
[f rep st] DISCHARGE SUMMARY NEW AND ACUTE DIAGNOSES ON THIS ADMISSION: 1. Lumbar stenosis with low back pain. 2. Coronary artery disease. 3. History of bilateral DVTs greater than 10 years ago, on Coumadin anticoagulation. 4. Diabetes mellitus, on oral agents. 5. Hyperlipidemia. 6. Chronic kidney disease with renal function at baseline, a creatinine of 1.2. 7. Hypertension. 8. Rheumatoid arthritis on prednisone and methotrexate. 9. Acute and chronic pain. CONSULTATIONS: Neurosurgery. PROCEDURES: On 12/13, the gentleman had removal of posterior nonsegmental hardware across the singl e interspace of L4-L5 posterolateral and intervertebral arthrodesis at L3 with bilateral decompressi ons. He tolerated the procedure well. HOSPITAL COURSE: A 76-year-old male with a known prior history of lumbar back pain who had previous lumbar surgery. Was admitted for management of his pain. Neurosurgery was consulted and the prior hardware was removed and an intervertebral arthrodesis at L3-4 and bilateral decompressions and int erbody device was placed. He tolerated the procedure well. His hypertension, diabetes were managed in the usual fashion. Coronary artery disease demonstrated he did not have chest pain or any cardi ac ischemia during the hospitalization. He is a gentleman who has a history of DVTs and had been on Coumadin anticoagulation. He was placed on Lovenox full dose prior to surgery, this was held and yao moncada was started on DVT prophylaxis on 12/15 at Lovenox 40 mg a day. He will resume full dose antico agulation on 12/17 with starting his usual dose of Coumadin and Lovenox bridging. The anticoagulation regime has been explained to the , the patient and the prescriptions were tr ansmitted to his pharmacy. DISCHARGE MEDICATIONS: New medications will be Lovenox 40 mg subcu given on 12/16. Additional medi cation will be Lovenox bridging of Lovenox 100 mg subcu b.i.d. started on 12/17 with 10 syringes pre scribed. His usual medications are as follows: Multivitamins, methotrexate 10 mg subcu per his pre vious schedule on a weekly basis, Coumadin 5 mg on Sunday, Sunday, Sunday, Sunday and 2.5 mg on , , Sunday, oxycodone IR 2.5 mg b.i.d., omega-3 fatty acids daily, Robaxin 750 mg p. o. q.i.d. p.r.n. back pain and spasm, ASA 300 mg Sunday, Sunday, Sunday, Tylenol on a p.r.n. basi s, saxagliptin 2.5 mg daily, prednisone 5 mg daily, Prilosec 20 mg daily, Lopressor 50 mg daily, Zet ia 10 mg daily, Sensipar 30 mg daily, alfuzosin 10 mg p.o. q.h.s., Humira 40 mg subcu q.14 days. LABORATORIES: Of note at the time of discharge, WBC 12,000, hemoglobin 12.4. Chemistry panel was n ormal with a creatinine of 1.3. His albumin was 3.1. PLAN: Debbie will be following up with his PCP, Dr. Berny Urbina, and he will follow up in 3-5 da ys to have an INR check and adjustment of his Lovenox and Coumadin dosage. He will also follow up w amy Miranda in approximately 2-3 weeks. Appointments were made with Dr. Miranda. TIME: This discharge required 45 minutes, greater than 50% to insurance counsel and coordinate the debbie' s care. /[id number]/MODL
[2016-12-16] MEDS ORDERED: ENOXAPARIN 40 MG/0.4 ML SYR SC SCH (09:00)
== END 2016-12-15 17:13 | disposition home health service (06) | DRG 460 ==
LOC: F3N 06:08
PROVIDERS: ADMIT Neurological Surgery; ATTEND Neurological Surgery
PROC: 0SP004Z Removal of Internal Fixation Device from Lumbar Vertebral Joint, Open Approach (ICD-10-PCS; principal; 2016-12-13 07:30)
PROC: 0SG00J1 Fusion of Lumbar Vertebral Joint with Synthetic Substitute, Posterior Approach, Posterior Column, Open Approach (ICD-10-PCS; principal; 2016-12-13 07:30)
PROC: 0ST20ZZ Resection of Lumbar Vertebral Disc, Open Approach (ICD-10-PCS; principal; 2016-12-13 07:30)
PROC: 00NY0ZZ Release Lumbar Spinal Cord, Open Approach (ICD-10-PCS; principal; 2016-12-13 07:30)
CPT/HCPCS: 97116-GP; 97161-GP; 97166-GO; 97535-GO; C1713; G8978-GP-CI; G8978-GP-CJ; G8979-GP-CI; G8987-GO-CJ; G8988-GO-CI; G8989-GO-CI; J0690; J1100; J1170; J1650; J2370; J2405; J2704; J3010

== ENCOUNTER → 2017-02-06 | Outpatient (CLI) | payer OTHER | LOC: FIMAGING 11:05 → EDSTATUS 11:32 | PROVIDERS: ATTEND Neurological Surgery | DX: M54.5 Low back pain (principal); Z98.1 Arthrodesis status ==

== ENCOUNTER → 2017-04-27 | Outpatient (CLI) | payer OTHER | LOC: FIMAGING 10:34 → EDSTATUS 10:35 | PROVIDERS: ATTEND Neurological Surgery | DX: Z09 Encounter for follow-up examination after completed treatment for conditions other than malignant neoplasm (principal); Z98.1 Arthrodesis status ==

== ENCOUNTER → 2017-08-27 | Outpatient (CLI) | payer OTHER | LOC: FIMAGING 10:00 | PROVIDERS: ATTEND Nurse Practitioner | DX: Z98.1 Arthrodesis status (principal) ==